=== PATIENT | male | born 1955 | race Caucasian/White ===

== ENCOUNTER 2021-03-27 16:13 | Emergency (ER) | payer BC ==
[~2021-03-27] VITALS: Ht 175.3 cm; Wt 98.4 kg
== END 2021-03-27 18:00 | disposition short-term general hospital (02) ==
LOC: ER 17:49
DX: R06.02 Shortness of breath (principal); R94.31 Abnormal electrocardiogram [ECG] [EKG]
CPT/HCPCS: 93005; 99281